=== PATIENT | female | born 1995 | race Caucasian/White ===

== ENCOUNTER 2023-12-29 12:03 | Outpatient (CLI) | payer OTHER, SELFPAY ==
--- NOTE | 2023-12-29 12:30 | US_ITS ---
Patient: JOAN OBANDO Facility:?[facility] RIS Patient ID:?[id number] Site Patient ID:?[id number] Site :?[id number] Study:?US-OB Pelvis DATING AND VIABILITY-12/29/2023 12:45:16 PM Ordering Physician:HEATH BURNHAM Final Report: INDICATION: First trimester scan, establish dates. COMPARISON: None. TECHNIQUE: Real-time barker-scale imaging of the pelvis was performed. FINDINGS: Sonographic imaging demonstrates a single living intrauterine gestation. The embryo demonstrates a regular cardiac rate measuring 171 beats per minute. The embryo`s crown-rump length measurement of 1.9 cm corresponds to a gestational age of 8 weeks 3 days with a sonographic due date of 08/06/2024. There is a normal-appearing yolk sac. There are no gross abnormalities noted within the embryo at this early state of development. The gestational sac has a normal appearance. There is no evidence of a perigestational hemorrhage. The amount of fluid within the sac appears appropriate for gestational age. The cervix is closed. The myometrium appears normal. The ovaries are of normal size. Corpus luteal cyst right ovary. There are no suspicious fluid collections noted in the cul-de-sac. IMPRESSION: Normal first trimester OB ultrasound exam. Gestational age calculated at 8 weeks 3 days with a sonographic due date of 08/06/2024. Dictated by Lm Wang MD @ 12/29/2023 1:04:30 PM Signed by:?Lm Wang MD @12/29/2023 1:04:30 PM (Electronic Signature)
== END 2023-12-29 12:04 | disposition home or self-care (01) ==
PROVIDERS: PCP Physician Assistant; Visit Provider Advanced Practice Midwife
DX: Z34.91 Encounter for supervision of normal pregnancy, unspecified, first trimester (principal); Z3A.08 8 weeks gestation of pregnancy
CPT/HCPCS: 76817; 84443; 84450; 84460; 86592; 86703; 86704; 86706; 86762; 86787; 86803; 86850; 86900; 86901; 87086; 87340

== ENCOUNTER 2024-01-02 15:34 | Outpatient (CLI) | payer OTHER, SELFPAY | END 2024-01-02 15:35 | disposition home or self-care (01) | LOC: NFLDREF 01-20 08:41 | PROVIDERS: Visit Provider Advanced Practice Midwife | DX: R03.0 Elevated blood-pressure reading, without diagnosis of hypertension (principal) | CPT/HCPCS: 82570; 84156 ==

== ENCOUNTER 2024-01-18 12:12 | Outpatient (CLI) | payer OTHER, SELFPAY | END 2024-01-18 12:13 | disposition home or self-care (01) | LOC: NFLDREF 02-03 18:15 | PROVIDERS: Visit Provider Advanced Practice Midwife | DX: R03.0 Elevated blood-pressure reading, without diagnosis of hypertension (principal) | CPT/HCPCS: 82570; 84156 ==

== ENCOUNTER 2024-02-28 10:17 | Outpatient (CLI) | payer OTHER, SELFPAY | END 2024-02-28 10:18 | disposition home or self-care (01) | LOC: NFLDREF 03-02 01:36 | PROVIDERS: Visit Provider Obstetrics & Gynecology | DX: Z34.92 Encounter for supervision of normal pregnancy, unspecified, second trimester (principal); Z3A.16 16 weeks gestation of pregnancy | CPT/HCPCS: 87491; 87591 ==

== ENCOUNTER 2024-03-27 12:44 | Outpatient (CLI) | payer OTHER, SELFPAY ==
--- NOTE | 2024-03-27 13:00 | CRLHL7_ITS ---
For Patients: As a result of the 21st Century Cures Act, medical imaging exams and procedure reports are released immediately into your electronic medical record. You may view this report before your referring provider. If you have questions, please contact your health care provider. OB ULTRASOUND CLINICAL HISTORY: Anatomy screen. COMPARISON: 12/29/2023. DUDLEY by LMP: 08/09/2024. GA: 20 w, 5 d. FINDINGS: position: Breech. Cervix: Visualized. Technique: Transabdominal. Length of closed cervix: 5.1 cm. Placenta/cord: Posterior. Placenta tip to internal OS: 7.8cm. Umbilical Cord: 3-vessel cord. Placenta insertion: Marginal (within 2 cm of placenta edge). Amniotic Fluid: 4.8 cm SDP (greater than/equal to: 2- less than 8 cm). SURVEY: Observed Structures Cerebellum: Yes. 2.3 cm; 23 w 0 d. Cisterna Magna: Yes. 4.7 mm. Nuchal Fold: Yes. 4.1 mm. Lateral Ventricle: Yes. 5.5 mm. CSP: Yes. Midline Falx: Yes. Choroid Plexus: Yes. Spine: Yes. Stomach: Yes. Abd Cord Insertion: Yes. Urinary Bladder: Yes. Kidneys: Yes. Diaphragm: Yes. Nose/lips: Yes. Orbital view: Yes. Profile: Yes. Upper Extremities: Yes. Lower Extremities: Yes. Hands: Yes. Feet: Yes. Four-Chamber Heart: Yes. LVOT: Yes. RVOT: Yes. 3VV: Yes. 3VTV: Yes. BPD: 4.9 cm. 20 w 6 d, 55%. HC: 18.3 cm. 20 w 4 d, 37%. AC: 16.7 cm. 21 w 5 d, 74%. FL: 3.6 cm. 21 w 3 d, 67%. FL/AC: 21.67%. HC/AC Ratio: 1.10. Heart rate: 159 beats per minute. age by this US: 21 w 4 d. DUDLEY by this US: 08/03/2024. EFW: 425 g. Weight: 15 oz. Percentile by DUDLEY: 83%. IMPRESSION: 1. Measurements are consistent with dates. Good interval growth since the prior exam. 2. Normal anatomic survey. 3. Marginal cord insertion located 1.9 cm from the placental edge. Joseluis Henry M.D. Body/Diagnostic Radiologist [email or web address] JOSE ANTONIO/adele angulo/Dictated by: Joseluis Henry MD @ 03/28/2024 9:49:00 AM (Electronically Signed)
== END 2024-03-27 12:45 | disposition home or self-care (01) ==
LOC: US 12:45
PROVIDERS: Visit Provider Obstetrics & Gynecology
DX: Z34.92 Encounter for supervision of normal pregnancy, unspecified, second trimester (principal); Z3A.20 20 weeks gestation of pregnancy
CPT/HCPCS: 76805

== ENCOUNTER 2024-05-25 08:01 | Outpatient (CLI) | payer OTHER, SELFPAY | END 2024-05-25 08:02 | disposition home or self-care (01) | LOC: NFLDREF 13:30 | PROVIDERS: PCP Obstetrics & Gynecology; Visit Provider Obstetrics & Gynecology | DX: O99.283 Endocrine, nutritional and metabolic diseases complicating pregnancy, third trimester (principal); E03.9 Hypothyroidism, unspecified; Z3A.29 29 weeks gestation of pregnancy | CPT/HCPCS: 76816; 84443; 86592 ==

== ENCOUNTER 2024-06-18 13:54 | Outpatient (CLI) | payer OTHER, SELFPAY ==
--- NOTE | 2024-06-18 14:00 | CRLHL7_ITS ---
For Patients: As a result of the Century Cures Act, medical imaging exams and procedure reports are released immediately into your electronic medical record. You may view this report before your referring provider. If you have questions, please contact your health care provider. INDICATION: Marginal cord insertion. Gestational age 32 weeks 4 days TECHNIQUE: Ultrasound OB pelvis transabdominal. Real-time barker-scale imaging of the fetus was performed without stress testing. COMPARISON: 05/25/2024 FINDINGS: Sonographic imaging demonstrates a single living intrauterine gestation. Fetus demonstrates a regular cardiac rate of 131 beats per minute. Fetus has a cephalic orientation. Placenta location is posterior. Placenta cord insertion is 3.7 cm from the placental margin. Amniotic fluid volume appears normal with single deepest vertical pocket of 5.9 cm. Biometric measurements: Biparietal diameter: 8.4 cm (33 weeks 5 days, 76th percentile). Head circumference: 30.0 cm (33 weeks 2 days, 30th percentile). Abdominal circumference: 29.6 cm (33 weeks 4 days, 77th percentile). Femur length: 6.3 cm (32 weeks 4 days, 39th percentile). Estimated weight: 2157 grams, 63rd percentile. Estimated ultrasound age by today`s measurements is 33 weeks 2 days. IMPRESSION: 1. Single live intrauterine in cephalic orientation. 2. Sonographic gestational age of 33 weeks 2 days. 3. Estimated weight of 2157 grams, which is the 63rd percentile. Dictated by Charleen Coto MD @ 06/19/2024 9:36:16 AM (Electronically Signed)
== END 2024-06-18 13:55 | disposition home or self-care (01) ==
LOC: US 13:54
PROVIDERS: Visit Provider Obstetrics & Gynecology
DX: O43.193 Other malformation of placenta, third trimester (principal); Z3A.33 33 weeks gestation of pregnancy
CPT/HCPCS: 76816

== ENCOUNTER 2024-07-16 14:58 | Outpatient (CLI) | payer OTHER, SELFPAY ==
[2024-07-17 22:54] LABS: Strep B DNA Probe Negative (Negative)
[2024-07-17 23:33] LABS: Strep B Susceptibility Needed? No
== END 2024-07-16 14:59 | disposition home or self-care (01) ==
PROVIDERS: Visit Provider Obstetrics & Gynecology
DX: R03.0 Elevated blood-pressure reading, without diagnosis of hypertension (principal)
CPT/HCPCS: 82565; 82570; 84156; 84450; 84460; 87081; 87653

== ENCOUNTER 2024-07-17 14:08 | Outpatient (CLI) | payer OTHER, SELFPAY | END 2024-07-17 14:09 | disposition home or self-care (01) | PROVIDERS: Visit Provider Obstetrics & Gynecology | DX: O13.3 Gestational [pregnancy-induced] hypertension without significant proteinuria, third trimester (principal); Z3A.36 36 weeks gestation of pregnancy | CPT/HCPCS: 82565; 82570; 84156; 84450; 84460; 84520; 87086 ==

== ENCOUNTER 2024-07-18 16:29 | Inpatient (IN) | payer OTHER, SELFPAY ==
[2024-07-18] VITALS (9 sets, daily range): BP systolic 118–136; BP diastolic 67–83; PULSE 68–85; RESP 14; TEMP 36.9; BMI 39.2
[2024-07-18 17:10] LABS: Hematocrit 39.7 % (33.0-51.0); Hemoglobin* 13.6 gm/dL (12.0-16.0); Mean Corpuscular HGB Conc 34 gm/dL (32-36); Mean Corpuscular Hemoglobin 31 pg (26-34); Mean Corpuscular Volume 89 fL (80-100); Platelet Count* 209 K/uL (140-440); Red Blood Count 4.44 m/uL (4.00-5.20); White Blood Count* 12.22 K/uL (4.50-11.00)
[2024-07-18 17:20] LABS: Slide Review Reflex No
[2024-07-18] MEDS: miSOPROStoL 25 MCG/0.25 TABLET VAGINAL ×2 (17:30→21:34)
[2024-07-18 17:33] LABS: INR 0.89 (0.91-1.10); Prothrombin Time 12.6 Seconds
[2024-07-18 17:34] LABS: Partial Thromboplastin Time* 25 Seconds (23-33)
[2024-07-18 17:35] LABS: Fibrinogen* 468 mg/dL (200-450)
[2024-07-18 17:38] LABS: Total Protein Urine 6 mg/dL
[2024-07-18 17:39] LABS: Alanine Aminotransferase* 25 U/L (4-35); Aspartate Amino Transferase* 31 U/L (12-35); Creatinine Urine 62.3 mg/dL; Creatinine* 0.7 mg/dL (0.5-1.5); Estimated Glomerular Filt Rate 119 ml/min
[2024-07-18 17:40] LABS: Blood Urea Nitrogen* 10 mg/dL (5-24)
--- NOTE | 2024-07-18 18:02 | W.PM.LDBA ---
Subjective History of Present Illness Time Seen by Provider: 17:05 Date Seen: 07/18/24 Narrative: Patient is being admitted to Labor and Delivery for scheduled induction of labor for gestational hypertension. She is a 29 year old at 36w6d gestation. is otherwise complicated by hypothyroidism. Patient was seen several times this week, where she was diagnosed with gestational hypertension and recommended to have scheduled induction at 37 weeks. Cervix was checked yesterday by Dr. Raad Gooden, closed to fingertip. Lesa is feeling well today, denies any acute concerns. She has at intermittent headache, rated as 2/10 in severity. This is so mild she is not even utilize Tylenol. Denies vision changes or right upper quadrant pain. No regular/painful uterine contractions, vaginal bleeding or leaking of fluid. Endorses active movement. Specific Issues/Plans Maximiliano H&P done by Dr. Denny on 07/16/2024. # GHTN- diagnosed at 36 5/7 weeks Elevates BPs more than 4 hours apart. IOL scheduled to start 07/18/24 #Hypothyroidism on levothyroxine 50 mcg at NOB TSH 1st trimester- 0.4 2nd: N/A 05/25/24: 0.549 # marginal cord insertion (Resolved) Diagnosis on anatomy ultrasound. 1.9 cm from placental edge. Q 4 weeks growth scans starting at 28 weeks BPP weekly starting at 36 weeks US on 06/18/24: Cord insertion into the placenta is 3.7 cm from edge. EFW 63%tile, AC 77%tile. SDP 5.9 cm. Can cancel BPP # Rubella non-immune recommend vaccine PP Covid positive- 03/20/24, mild symptoms Ultrasounds: 03/27/24: anatomy. ?EFW 83%, AC 74%. SDP 4.8 cm. Posterior placenta without previa. Three-vessel cord. Marginal cord insertion.? 05/25/24: Vertex, single deepest pocket of amniotic fluid: 4.8 cm, EFW: 71 percentile, abdominal circumference: 78th percentile. Adequate growth. TDAP: 05/25/24 RSV: 07/02/24 Flu: got at work. Covid: Declines OB - Problem Based A/P Additional Plan (1) Gestational hypertension: Status: Acute (2) Hypothyroidism affecting : Status: Acute Plan Lesa is a 29-year-old at 36 weeks 6 days gestational age admitted for induction of labor in the setting of gestational hypertension. is otherwise complicated by hypothyroidism. She is feeling well today with no acute concerns. No relenting headache, vision changes right upper quadrant pain. No signs/symptoms of labor at this time. Plan to admit with Cytotec for cervical ripening overnight. Obtain type and screen and HELLP labs on admission Diligent blood pressure monitoring overnight, no signs or symptoms of preeclampsia severe features at this time Blood type O positive GBS negative EFW 2157 grams, which is the 63rd percentile by ultrasound on 07/17 OB Exam Physical Exam Vital signs: Pulse BP 82 125/75 07/18/24 17:22 07/18/24 17:22 Narrative: Physical exam: General: No acute distress Psych: Alert and oriented x3, full affect Abdomen: Gravid. Otherwise soft and nontender. EFW by growth ultrasound yesterday was 2157 grams, which is the 63rd percentile. Cephalic presentation. heart rate: Reactive NST. Baseline of 125 beats per minute, moderate variability, accelerations present, decelerations absent. Cervix: Finger tip by Dr. Beckham yesterday. Plan Cytotec overnight.
[2024-07-19] VITALS (36 sets, daily range): BP systolic 106–150; BP diastolic 55–96; PULSE 67–102; RESP 15–16; TEMP 36.7–37.1; O2SAT 96–100
[2024-07-19] MEDS: MORPHINE 10 MG/ML inj IM (02:48)
[2024-07-19] MEDS: hydrOXYzine pamoate 25 MG CAPSULE 100 MG PO (02:48)
[2024-07-19] MEDS: miSOPROStoL 25 MCG/0.25 TABLET VAGINAL ×2 (02:49→07:43)
--- NOTE | 2024-07-19 07:42 | PM.OBPNL ---
Subjective Time Seen by Provider: 07:42 Date Seen: 07/19/24 Narrative: Subjective: Rating her contractions 4-5/10 so somewhat uncomfortable. Has had 3 doses of Cytotec overnight. Reviewed that we can do up to 5 doses of Cytotec. Thing on her cervical exam after Cytotec plan would be to either place a Cook catheter or start Pitocin per the induction protocol. Vital signs: Per electronic medical record. EFM: Baseline 130s, positive accelerations, negative decelerations, [moderate] variability, reactive. Category 1. [place]: Contractions every 2-4 minutes. SVE: 1.5 cm/50 %/-3/mid/soft. Brantley score 5 Assessment: 29-year-old 1 para 0 at 37 weeks 0 days gestation undergoing induction of labor for gestational hypertension Plan: 1. Continue Cytotec for cervical ripening, getting her 4th dose of Cytotec now. Will reassess cervical exam in a few hours and make a plan for either Cook catheter or Pitocin per induction protocol. 2. Group B strep negative 3. Blood type O positive Objective Vital Signs: Last Vital Signs Temp 98.5 F 07/19/24 04:49 Pulse 78 07/19/24 07:39 Resp 16 07/19/24 02:58 BP 133/96 H 07/19/24 07:39 Pulse Ox 99 07/19/24 07:03
[2024-07-19] MEDS: LEVOTHYROXINE 50 MCG TABLET PO (08:09)
--- NOTE | 2024-07-19 12:54 | PM.OBPNL ---
Subjective Time Seen by Provider: 12:54 Date Seen: 07/19/24 Narrative: Subjective: Patient is comfortable w/ epidural/uncomfortable with contractions. Rating contractions 5/10 after 4 doses of Cytotec. Verbal consent obtained to place a Cook catheter. Vital signs: Per electronic medical record. EFM: Baseline 130s, positive accelerations, negative decelerations, moderate variability, reactive. Category 1. [place]: Contractions every 2-4 minutes. SVE: 1.5 cm/50 %/-2. Cook catheter placed Assessment: 29-year-old 1 para 0 at 37 weeks 0 days gestation undergoing cervical ripening followed by induction of labor for gestational hypertension. Plan: 1. Start low-dose Pitocin at 7:00 p.m. 2. Cook catheter placed with 60 mL of saline in both balloons at 12:50 p.m. 3. GBS negative Objective Vital Signs: Last Vital Signs Temp 98.4 F 07/19/24 11:52 Pulse 88 07/19/24 12:52 Resp 16 07/19/24 11:52 BP 132/90 H 07/19/24 12:52 Pulse Ox 97 07/19/24 10:47
[2024-07-19] MEDS: OXYTOCIN 30 unit/500 ML in NS 30 UNIT/500 ML BAG IVPB (19:11)
[2024-07-19] MEDS: LACTATED RINGERS 1000 ML 1,000 ML 25 ML IV (19:11)
[2024-07-20] VITALS (74 sets, daily range): BP systolic 96–140; BP diastolic 42–94; PULSE 69–104; RESP 16–18; TEMP 36.6–37; O2SAT 96–100
[2024-07-20] MEDS: ROPIVACAINE 0.2% 100 ml 100 ML 12 MG EPIDURAL (07:44)
[2024-07-20] MEDS: BUPIVACAINE 0.25% PF 10 ML 10 ML ML EPIDURAL (07:44)
--- NOTE | 2024-07-20 07:53 | P.ANBPRC_ITS ---
PFSH PFSH Surgical History Hx of adenoidectomy ?Z90.89 - Acquired absence of other organs (ICD-10) Hx of appendectomy ?Z90.49 - Acquired absence of other specified parts of digestive tract (ICD- 10) Hx of tonsillectomy ?Z90.89 - Acquired absence of other organs (ICD-10) Social History What is your current living situation?: I presently have a place to live Problems where you live: no known problems In the past 12 months, utilities in danger of being shut off: no In the past 12 mos, have been you worried that your food would run out before you had money to buy more?: never true In the past 12 mos, the food you bought just didn't last and you didn't have money to buy more?: never true Smoking Status: Never smoker How often does anyone, including family, friends and others, physically hurt you : never How often does anyone, including family, friends and others, insult or talk down to you: never How often does anyone, including family, friends and others, threaten you with harm: never How often does anyone, including family, friends and others, scream or curse at you: never Meds Home Medications and Allergies Home Medications ?Medication ?Instructions ?Recorded ?Confirmed ?Type calcium-vit D3-ferrous fumarate 1 tab PO BID 12/29/23 07/18/24 History 600 mg-125 unit-18 mg tablet levothyroxine 50 mcg capsule 50 mcg PO QDAY 12/29/23 07/18/24 History vitamins no.119-iron 1 tab PO DAILY 12/29/23 07/18/24 History fumarate 29 mg-folic acid 1 mg tablet calcium carbonate (Tums) 300 mg PO BID PRN 03/27/24 07/18/24 History omeprazole 20 mg capsule,delayed 20 mg PO QDAY PRN 03/27/24 07/18/24 History release amoxicillin 875 mg-potassium 1 tab PO BID 07/16/24 07/18/24 History clavulanate 125 mg tablet Allergies Allergy/AdvReac Type Severity Reaction Status Date / Time No Known Drug Allergies Allergy Verified 07/18/24 16:49 Results Vital Signs Vital Signs: Last Vital Signs Temp 97.8 F 07/20/24 06:00 Pulse 85 07/20/24 07:51 Resp 18 07/20/24 01:32 BP 124/79 07/20/24 07:51 Pulse Ox 96 07/20/24 07:49 Weight: 113.534 kg Height: 170.18 cm Anesthesia Procedures Epidural Insertion Patient Location: OB Start Time: 07:15 Stop Time: 07:55 Start Date: 07/20/24 Stop Date: 07/20/24 Reason for Block: procedure for pain Patient Position: sitting Performed By: Colby Roland Preanesthetic Checklist: IV checked, risks and benefits discussed, monitors and equipment checked, pre-op evaluation, timeout performed and anesthesia consent Prep: chlorhexidine gluconate Monitoring: blood pressure monitoring, continuous pulse oximetry and heart rate Approach: midline Vertebral Space: lumbar (1-5) Epidural Technique: DENA saline Needle Type: Tuohy needle Injection Technique: continuous catheter Needle gauge: 17 Needle Length (cm): 10 cm Needle Insertion Depth (cm): 7 Catheter Gauge: 19 Catheter Type: multi-orifice Catheter at skin depth (cm): 13 Test Dose Result: negative and lidocaine 1.5% with epinephrine 1 to 200,000
[2024-07-20] MEDS: LACTATED RINGERS 1000 ML 1,000 ML 125 ML IV ×2 (08:05→17:30)
--- NOTE | 2024-07-20 08:26 | PM.OBPNL ---
Subjective Time Seen by Provider: 08:43 Date Seen: 07/20/24 Narrative: Lesa is a 29-year-old woman at 37 weeks, 1 day gestation admitted for induction of labor for gestational hypertension. Thus far, she has had Cytotec for cervical ripening, followed by Cook catheter, which was reviewed moved early this morning. She just had an epidural for pain control, and Leon catheter was just placed. Objective Exam: General: Pleasant, no acute distress Abdomen: Soft, nontender, gravid, cephalic lie, EFW 8 lb Lower extremities: No edema or erythema Cervical exam: 3 cm, 80%,-2 station. AROM for blood-tinged fluid. IUPC placed in aseptic fashion. Vital Signs: Last Vital Signs Temp 98.3 F 07/20/24 08:00 Pulse 88 07/20/24 08:08 Resp 18 07/20/24 08:00 BP 112/59 L 07/20/24 08:08 Pulse Ox 96 07/20/24 07:49 tracing: Baseline 150. Beginning at 7:40 a.m., there were recurrent variable decelerations, 2 of which were deep, with the lowest with a carlton in the 70s lasting about 1 minute. Since around 8:20 a.m., she has had recurrent decelerations that appeared late, but contractions are not tracing very well or at all. Moderate variability. Comments: Last HELLP labs were normal the afternoon of 07/18/2024 Assessment Assessment: early labor Amniotic Membrane Status: AROM Tracing Comments: Category 2. Uncertain regarding presence of late decelerations. Labor Progress: Prolonged induction, currently in latent phase labor. Maternal Status: Normotensive in recent history. No HELLP labs since 07/18/2024. Plan Plan: IUPC placed. I will observe tracing now that I am able to see timing of contractions to verify if she is having late decelerations or not. Continuous monitoring. If late decelerations are noted, I will discontinue Pitocin. Repeat HELLP labs
[2024-07-20 09:39] LABS: Basophils Percent Auto 0.3 % (0.0-3.0); Eosinophils Percent Auto 0.5 % (0.0-7.0); Hematocrit 39.3 % (33.0-51.0); Hemoglobin* 13.6 gm/dL (12.0-16.0); Immature Granulocytes Pct Auto 0.7 %; Lymphocytes Percent Auto 12.6 % (20-44); Mean Corpuscular HGB Conc 35 gm/dL (32-36); Mean Corpuscular Hemoglobin 31 pg (26-34); Mean Corpuscular Volume 90 fL (80-100); Monocytes Percent Auto 6.3 % (0.0-11.0); Neutrophils Percent Auto 79.6 % (42.0-72.0); Platelet Count* 196 K/uL (140-440); RDW Coefficient of Variation % 12.7 % (11.5-15.5); Red Blood Count 4.35 m/uL (4.00-5.20); White Blood Count* 15.26 K/uL (4.50-11.00)
[2024-07-20 09:41] LABS: Slide Review Reflex No
[2024-07-20 09:55] LABS: Alanine Aminotransferase* 21 U/L (4-35); Aspartate Amino Transferase* 32 U/L (12-35); Blood Urea Nitrogen* 12 mg/dL (5-24); Creatinine* 0.8 mg/dL (0.5-1.5); Est. Creatinine Clearance* 99.99; Estimated Glomerular Filt Rate 102 ml/min
[2024-07-20] MEDS: LEVOTHYROXINE 50 MCG TABLET PO (10:27)
[2024-07-20] MEDS: AZITHROMYCIN 500 MG in 0.9 % SODIUM CHLORIDE 250 ml 250 ML 255 MG IVPB (11:59)
[2024-07-20] MEDS: CEFAZOLIN 2 GM INJ IVP (14:05)
--- NOTE | 2024-07-20 14:16 | W.ANESCHARGE ---
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
--- NOTE | 2024-07-20 14:17 | W.PM.NB ---
Nerve Block Nerve Block Time Seen by Provider: 15:10 Date Seen: 07/20/24 Type of block requested by surgeon for post-operative analgesia: TAP Side: bilateral Time out performed: Yes Verification of patient name: Yes Verification of date of : Yes Site marking: site marked Name of person performing procedure: Randy Hogan Continuous monitoring Was continuous monitoring of O2 sat, B/P, cardiac cath technician, recorded every 15 minutes?: Yes Procedure Checklist: sterile prep, needles and gloves Ultrasound guided. Images saved: Yes Medications given in 5ml increments after negative aspiration: Marcaine %: 0.25 mL: 30 Needle gauge: 20 and Exparel mL: 10 Needle gauge: 20 Patient tolerated procedure well: Yes Additional comments: Injected in 5ml increments after negative aspiration Block Charges Block Charge (with Pro Fee): TAP Bilateral Use of Ultrasound Machine for Block: Yes- US Guidance/pain block
[2024-07-20] MEDS: KETOROLAC 30 MG/ML inj IVP ×2 (14:51→21:22)
--- NOTE | 2024-07-20 14:57 | PM.OBPRCCS ---
Procedure Date of procedure: 07/20/24 Pre-op diagnosis: 37 weeks, 1 day gestation Hypertension intolerance of labor Post-op diagnosis: same Procedure Done: Global Will [facility] bill your pro fee for this procedure?: Yes Blood Loss Measurement Type: QBL (364 mL) Bakri Used: No IV fluids (mL): 400 Urine Output (mL): 200 Surgeon: Daisy Whiting MD Anesthesia Type: Epidural Findings: 1. Male , cephalic OA presentation, Apgars of 8 and 9, weight 6 lb, 1 oz 2. Normal appearance of uterus, bilateral tubes and ovaries Procedure Name: Primary low-transverse Procedure Description: Patient was taken to the operating room with IV running. She received cefazolin and azithromycin in preoperative prophylaxis. Epidural anesthesia had previously been administered. Leon catheter was previously inserted. She was prepped and draped in the usual sterile fashion. Anesthesia was tested and found to be adequate. A low-transverse skin incision was made with a scalpel and carried through to the underlying layer of fascia with the scalpel. The subcutaneous fat was dissected off the underlying fascia bluntly. The fascia was nicked in the midline with a scalpel, and this incision was extended laterally with scissors. The rectus muscles were in the midline. Peritoneum was identified and entered bluntly. Bovie was used to widen this opening laterally. Yash O retractor was inserted and tightened down, providing excellent visualization of the lower uterine segment. The bladder reflection was found to be well below the planned site for hysterotomy. Low-transverse uterine incision was made with a scalpel. Incision was widened bluntly. The infant's head was grasped through the hysterotomy and delivered with the help of fundal pressure. The remainder of the body delivered without incident. Cord was clamped and cut after 30 seconds. was handed off to attending pediatric provider. The placenta was delivered with gentle traction on the cord. The uterus was cleaned of all clots and debris with the dry lap pad. The hysterotomy was reapproximated with 0 Vicryl in a running, locked fashion. Second layer of the same suture was used in imbricating fashion to obtain hemostasis. The adnexa were examined and noted to be normal in appearance. The cul-de-sac and gutters were cleansed with dampened laparotomy sponge, removing any further clots and debris. The Yash O retractor was removed. The hysterotomy was reexamined and found to be hemostatic. The peritoneum was reapproximated with 2 0 Vicryl in a running fashion. The rectus muscles were examined and found to be hemostatic. The fascia was reapproximated with 0 Vicryl in a running fashion. Subcutaneous fat was irrigated and Bovie used on oozing vessels. The subcutaneous fat was reapproximated with 2 0 plain gut suture in an interrupted fashion. The skin was closed with a subcuticular stitch of 4-0 Monocryl. Surgical glue was applied above this. Patient tolerated procedure well was taken to recovery area in stable condition. Pathology: specimen obtained, sent to pathology Surgery Debrief Performed: Yes Surgery Debrief Comment: Postoperative debrief was verbalized with OR staff, including a verification of pathology specimens to be sent as described above. Condition: stable
--- NOTE | 2024-07-20 15:01 | W.ANESCHARGE ---
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
[2024-07-20] MEDS: ENOXAPARIN 40 MG/0.4 ML INJ SUBCUT (20:31)
[2024-07-20] MEDS: SODIUM CHLORIDE 0.9 % (FLUSH) 10 ML SYRINGE IVF (21:23)
[2024-07-21] VITALS (18 sets, daily range): BP systolic 104–148; BP diastolic 68–93; PULSE 55–99; RESP 16–18; TEMP 36.6–36.7; O2SAT 97–100
[2024-07-21] MEDS: KETOROLAC 30 MG/ML inj IVP ×4 (02:51→20:35)
[2024-07-21] MEDS: SODIUM CHLORIDE 0.9 % (FLUSH) 10 ML SYRINGE IVF (02:55)
[2024-07-21 06:06] LABS: Rapid Plasma Reagin (RPR) Non Reactive (Non Reactive)
[2024-07-21 07:12] LABS: Basophils Percent Auto 0.2 % (0.0-3.0); Eosinophils Percent Auto 0.1 % (0.0-7.0); Hematocrit 34.9 % (33.0-51.0); Hemoglobin* 11.9 gm/dL (12.0-16.0); Immature Granulocytes Pct Auto 0.5 %; Mean Corpuscular HGB Conc 34 gm/dL (32-36); Mean Corpuscular Hemoglobin 31 pg (26-34); Mean Corpuscular Volume 91 fL (80-100); Monocytes Percent Auto 6.4 % (0.0-11.0); Neutrophils Percent Auto 77.8 % (42.0-72.0); Platelet Count* 180 K/uL (140-440); Red Blood Count 3.83 m/uL (4.00-5.20); White Blood Count* 19.87 K/uL (4.50-11.00)
[2024-07-21 07:20] LABS: Slide Review Reflex No
[2024-07-21 07:31] LABS: Alanine Aminotransferase* 17 U/L (4-35); Aspartate Amino Transferase* 33 U/L (12-35); Blood Urea Nitrogen* 11 mg/dL (5-24); Creatinine* 0.7 mg/dL (0.5-1.5); Est. Creatinine Clearance* 114.28; Estimated Glomerular Filt Rate 119 ml/min
[2024-07-21] MEDS: DOCUSATE SODIUM 100 MG CAPSULE PO (08:00)
[2024-07-21] MEDS: ACETAMINOPHEN 500 MG TABLET 1000 MG PO ×2 (08:00→13:57)
[2024-07-21] MEDS: LEVOTHYROXINE 50 MCG TABLET PO (08:01)
--- NOTE | 2024-07-21 09:42 | P.OBPN_ITS ---
OB - PN:Subj Subjective Time Seen by Provider: 09:20 Date Seen: 07/21/24 Patient comments OB post-: pain well controlled, tolerating diet and flatus present status: Narrative: Lesa is a 29 y.o. who was admitted to L & D for IOL due to GHTN diagnosis. ?She had an uncomplicated .?The patient feels well. ?The pain is well controlled with current medications. ?She has no new complaints. ?She is breast feeding and reports things are going well.? the patient has done well.? Vitals have been stable.? She has remained afebrile.? Has a good appetite, is tolerating a general diet. ?Leon catheter in place with normal output.? She is passing gas and has not had a bowel movement.? She is ambulating and denies any dizziness.? Has Small amount of rubra lochia. ?No FAMILY ADVOCATE irritability symptoms, and blood pressures have remained normal. OB - PN: Obj Exam Physical Exam: Vital signs: Temp Pulse Resp BP Pulse Ox O2 Del Method 97.8 F 55 L 18 122/82 99 Room Air 07/21/24 07:00 07/21/24 07:00 07/21/24 07:00 07/21/24 07:00 07/21/24 07:00 07/21/24 07:00 Narrative: GENERAL APPEARANCE:? normal affect, alert, no distress MOOD:? appropriate CHEST:? clear to auscultation HEART:? regular rate and rhythm ABDOMEN:? soft, non-tender the uterine fundus is At Umbilicus, Midline and is appropriate for the stage of recovery. EXTREMITIES:? normal and no edema Incision: Dressing in place clean and dry. OB - PN: Obj Data Labs Labs: Laboratory Results - last 24 hr 07/18/24 07/20/24 07/21/24 16:59 09:15 06:39 WBC 19.87 H RBC 3.83 L Hgb 11.9 L Hct 34.9 MCV 91 MCH 31 MCHC 34 RDW Coeff of Chelsey 13.0 Plt Count 180 Neut % (Auto) 77.8 H Lymph % (Auto) 15.0 L [place] % (Auto) 6.4 Eos % (Auto) 0.1 Baso % (Auto) 0.2 Neut # (Auto) 15.50 H Lymph # (Auto) 3.00 H [place] # (Auto) 1.30 H Eos # (Auto) 0.00 Baso # (Auto) 0.00 Abs Immat Gran (auto) 0.10 Imm/Tot Granulo (auto) 0.5 BUN 12 11 Creatinine 0.8 0.7 Estimated Creat Clear 99.99 114.28 Estimated GFR 102 119 AST 32 33 ALT 21 17 RPR Screen Non Reactive OB - PN: A/P Delivery Assessment and Plan (1) Gestational hypertension: Status: Acute Assessment and Plan: Continue to monitor V/S, will only repeat labs if there are episodes of severely elevated blood pressures or FAMILY ADVOCATE irritability symptoms. (2) Hypothyroidism affecting : Status: Acute Assessment and Plan: Continue levothyroxine Plan day: 1 Plan: routine care
[2024-07-21] MEDS: OXYCODONE 5 MG TABLET PO (17:20)
[2024-07-21] MEDS: ENOXAPARIN 40 MG/0.4 ML INJ SUBCUT (20:35)
[2024-07-22] MEDS: IBUPROFEN 600 MG TABLET PO ×2 (00:25→06:32)
[2024-07-22] MEDS: OXYCODONE 5 MG TABLET PO ×2 (03:15→10:14)
[2024-07-22] MEDS: ACETAMINOPHEN 500 MG TABLET 1000 MG PO ×2 (03:15→10:14)
[2024-07-22 04:09] VITALS: BP 119/74; PULSE 84; RESP 16; TEMP 36.9
[2024-07-22 08:13] VITALS: BP 119/77; RESP 16; TEMP 36.8; O2SAT 98
[2024-07-22] MEDS: DOCUSATE SODIUM 100 MG CAPSULE PO (08:46)
[2024-07-22] MEDS: LEVOTHYROXINE 50 MCG TABLET PO (08:46)
--- NOTE | 2024-07-22 10:21 | PM.OBDSVD1 ---
DS: Providers Provider Date Seen: 07/22/24 Date of admission: 07/18/24 16:29 Primary care physician: Not a Local Provider Admitting Clinician: April Diaz MD Attending Physician on discharge: Brittnee Beckham MD Date of Discharge: 07/22/24 DS: Diagnosis Discharge Diagnosis (1) Gestational hypertension: Status: Acute (2) Status post delivery: Status: Acute (3) Hypothyroid: Status: Acute Exam Narrative: Exam Narrative: VITAL SIGNS: As noted above. GENERAL APPEARANCE: Alert, cooperative female in no acute distress. MOOD & AFFECT: Normal. HEART: Regular rate and rhythm without murmurs. LUNGS: Lungs are clear to auscultation bilaterally. No crackles, wheezes, or rhonchi. ABDOMEN: Uterus well contracted at umbilicus. Incision covered by glue, surrounding hematoma. Otherwise no abnormal induration, erythema or abnormal discharge. : Normal lochia. EXTREMITIES: Bilateral pitting edema +1 up to ankles. Well perfused. Nontender. NEURO: Intact. Const: Vital Signs, click to edit/add: Vital Signs - 24 hr 07/21/24 10:38 07/21/24 12:25 07/21/24 17:10 Temperature 97.8 F 97.8 F Pulse Rate [Pulse Oximeter] 64 99 94 Respiratory Rate 16 18 16 Blood Pressure [Ri ght Arm] 118/76 122/82 104/72 Pulse Oximetry 98 99 98 Oxygen Delivery Me thod Room Air Room Air Room Air 07/21/24 20:40 07/21/24 23:41 07/21/24 23:58 Temperature 98.0 F 97.9 F Pulse Rate [Pulse Oximeter] 89 93 Respiratory Rate 16 16 Blood Pressure [Ri ght Arm] 126/78 143/93 H 148/83 H Pulse Oximetry Oxygen Delivery Me thod Room Air 07/22/24 04:09 07/22/24 08:13 Temperature 98.4 F 98.2 F Pulse Rate [Pulse Oximeter] 84 Respiratory Rate 16 16 Blood Pressure [Ri ght Arm] 119/74 119/77 Pulse Oximetry 98 Oxygen Delivery Me thod Room Air OB - DS: Summary Hospital Course Hospital Course: The patient is a 29 year old G 1 P 1001 at 37 weeks gestation that was admitted to the Center on 07/18/24 for induction of labor due to gestational hypertension. She had an uncomplicated delivery. She delivered a viable male infant. She is breast feeding. the patient has done well. has had only 1 mild range elevated blood pressure, otherwise all normal. No TRANSITIONS RN CARE COORDINATOR irritability symptoms. Peripartum Data delivery method: Primary C/S; Labored Procedures: Procedures Operation Date: 07/20/24 14:00 Actual Procedure Side Surgeon p Primary low transverse Section Not Applicable Daisy Whiting MD complications: none [place] Gender: Male Discharge Plan: Home Status at Discharge Functional status at discharge: independent ambulation Overall status at discharge: patient is progressing back to baseline Time Spent with Patient Time attestation: Total time spent providing and/or coordinating discharge services: Time spent: Less than 30 minutes Discharge Plan Discharge Disposition: Home, Self-Care Date of Admission: 07/18/24 16:29 Attending Provider on Discharge: Kerrie Beckham Consulting Providers: Ashwini Miller; Kerrie Beckham Primary Care Provider: Provider,Not a Local Condition: Stable Anticipated Discharge Date/Time: 07/22/24 10:26 Discharge Medications: New acetaminophen 500 mg Tablet 1,000 mg PO Q6H PRN (Reason: Pain) Qty: 30 0RF docusate sodium 100 mg Capsule 100 mg PO DAILY Qty: 30 0RF ibuprofen 600 mg Tablet 600 mg PO Q6H PRN (Reason: Pain) Qty: 30 0RF Continued levothyroxine 50 mcg capsule 50 mcg PO QDAY PNV 119-iron fum-folic acid 29 mg iron- 1 mg tablet 1 tab PO DAILY [id number] fumarate 600-125-18 mg-unit-mg tablet 1 tab PO BID Discontinued amoxicillin-pot clavulanate 875-125 mg tablet 1 tab PO BID No Action labetalol 100 mg tablet 100 mg PO BID Qty: 60 0RF Discharge Orders: Discharge Order (Routine); Ordered 07/22/24 Ordered By: Kerrie Beckham Patient Education: OB Over the Counter Medication Information, OB /Breast Feeding Additional Instructions: Measure blood pressures at home twice a day. Notify clinic if there are blood pressures persistently more than 140 systolics, 90s diastolics or if any symptoms such as headaches that do not go away with pain medication, visual changes such as dark spots in vision, pain in the upper abdomen-that moves towards the upper right side. Follow-up in clinic in 3-5 days after discharge for blood pressure check. Follow-up in clinic in 2 weeks for incision check and follow-up. Follow-up in 6 weeks in clinic for regular visit. Activity Level: No Weight Bearing Activity Detail: Nothing vaginally for 6 weeks Discharge Diet: Regular Follow Up Appointments: Provider,Not a Local [Primary Care Provider] - Forms: [employer] Info Instructions Discharge Comments: Message sent to clinic requesting BP follow up appointment in 3-5 days. Discharge instructions reviewed. All questions answered. Patient verbalized understanding.
[2024-07-22] MEDS: MEASLES,MUMPS,RUBELLA VACC/PF 1 DOSE INJ 1 EACH SUBCUT (12:58)
== END 2024-07-22 13:40 | disposition home or self-care (01) | DRG 788 ==
PROVIDERS: Obstetrics & Gynecology; Admitting Provider Obstetrics & Gynecology; Visit Provider Obstetrics & Gynecology
PROC: (CPT 59514; principal; 2024-07-20 13:45)
DX: O13.4 Gestational [pregnancy-induced] hypertension without significant proteinuria, complicating childbirth (principal); O99.284 Endocrine, nutritional and metabolic diseases complicating childbirth; E03.9 Hypothyroidism, unspecified; Z3A.36 36 weeks gestation of pregnancy; Z37.0 Single live birth; G89.18 Other acute postprocedural pain; O77.1 Fetal stress in labor or delivery due to drug administration; Z78.9 Other specified health status
CPT/HCPCS: 01967; 01968; 36415; 59200; 64488; 76942; 82565; 82570; 84156; 84450; 84460; 84520; 85025; 85027; 85384; 85610; 85730; 86592; 86850; 86900; 86901; 88307; 99140; A4314; A9270; C1726; C9290; J0456; J0665; J0690; J1100; J1650; J1885; J2270; J2371; J2405; J2795; J3010; J7050; J7120

== ENCOUNTER 2024-07-23 14:28 | Outpatient (CLI) | payer OTHER, SELFPAY ==
--- NOTE | 2024-07-23 16:49 | W.PM.LAC.MC ---
Consult Note - Mom Date of Visit Date of visit: 07/23/24 Reason for consultation: Assistance Needed Visit Code: Visit Patient's Information Phone number: [phone] Para: 1 Allergies No Known Drug Allergies Allergy (Verified 07/18/24 16:49) Mother's medical history: Other (gest HTN) Delivery Information Delivery type: Primary C/S; Labored Gestational Age: 37 Gestational Weight For Age: AGA Weight: 2.755 kg Discharge Weight: 2.491 kg Percentage weight loss: 5 Baby's Information Baby's Age at Visit: 3 days Baby's Provider or Clinic: [facility] Jaundice: Yes Past Experience Past Experience: No Current Frequency of Day Feedings: every 2.5-3 hours, needing to wake him for all feedings Frequency of Night Feedings: same Both Breasts: Yes (offering) Suck: ok per mom Latch: better on her left side than right Length of Time: 2-3 minutes Pumping Pumping: No Supplementing EBM Supplement: No Formula Supplement: No Baby Elimination Number of Wet Diapers a Day: 3 so far today Number of BM a Day: 2 Breast/Nipple Condition Breast Information: Breasts are symmetrical with rounded lower quadrants, intramammary distance is less than 1.5 inches. No erythema. Nipples are supple, everted prior to feeding. Breast Shape: Round and Firm Engorgement: No Maternal Nipple Condition - Left: Short Maternal Nipple Condition - Right: Short Sore Nipples: No Baby Assessment Skin: Yellow (face) Tongue/frenulum: Restricted mid-range Palate: Average Lips: Relaxed and Symmetrical Jaw Alignment: Symmetrical Mucosa: [place], moist Onsite Observation Pre-Feed weight: 2.491 kg (9.6% weight loss) Post-Feed weight: 2.504 kg Milk Transferred (mL): 13 Position: Cross cradle Attachment/latch-on achieved: With difficulty Suck pattern: Suck burst and normal rest Swallow: Audible, consistent Behavior following feed: Relaxed, sleepy Pre-Nursing Left Nipple: Within Normal Limits Pre-Nursing Right Nipple: Within Normal Limits Post-Nursing Left Nipple: Within Normal Limits Post-Nursing Right Nipple: Within Normal Limits Assessments/Interventions Assessments/Interventions: Worked with mom/taught asymmetrical latch technique for a wide, deep latch and mom reports increased comfort with this and? more sustained nursing by baby; swallows heard for the first time. Reviewed in both football and cross cradle hold. Baby sustained nursing for a solid 10 minutes on her left breast; also nursed 10 minutes on her right breast but that was more on and off (mom's nipple a little shorter on the right and milk coming in so harder for baby to binder stripper machine nipple). Discussed normals of ; milk coming in, regulation of supply, use of pump to relieve fullness if needed, but not to pump every feeding if not needed to prevent over supply. Worked on positioning to get baby's mouth open wider and a deeper latch for more milk intake. Feeding Plan: Breastfeed for 10-15 on each breast, listening for active swallowing Mom to hand express minimum of 5 ml and offer after each feeding via syringe/finger feeding Use a syringe/feeding tube, cup, or bottle for feedings based on preference Give 9.6% weight loss, if baby won't latch to the breast for a feeding at the 3 hour rosita, plan to pump and either finger feed or bottle feed 15-20 ml, more if he acts hungry. Continue this until clinic appt tomorrow. Rest, and repeat every 2-3 hours, watch for early feeding cues Follow-Up Suggested follow up: Appointment as needed Time Spent Time spent with patient (min): 90 (face to face with patient, her mom and ) Meds Home Medications and Allergies Home Medications ?Medication ?Instructions ?Recorded ?Confirmed ?Type calcium-vit D3-ferrous fumarate 1 tab PO BID 12/29/23 07/18/24 History 600 mg-125 unit-18 mg tablet levothyroxine 50 mcg capsule 50 mcg PO QDAY 12/29/23 07/18/24 History vitamins no.119-iron 1 tab PO DAILY 12/29/23 07/18/24 History fumarate 29 mg-folic acid 1 mg tablet calcium carbonate (Tums) 300 mg PO BID PRN 03/27/24 07/18/24 History omeprazole 20 mg capsule,delayed 20 mg PO QDAY PRN 03/27/24 07/18/24 History release Allergies Allergy/AdvReac Type Severity Reaction Status Date / Time No Known Drug Allergies Allergy Verified 07/18/24 16:49
== END 2024-07-23 14:29 | disposition home or self-care (01) ==
PROVIDERS: Visit Provider Obstetrics & Gynecology
DX: Z39.1 Encounter for care and examination of lactating mother (principal)
CPT/HCPCS: G0463

== ENCOUNTER 2024-07-24 11:41 | Outpatient (CLI) | payer OTHER, SELFPAY | END 2024-07-24 11:42 | disposition home or self-care (01) | PROVIDERS: Visit Provider Obstetrics & Gynecology | DX: O14.10 Severe pre-eclampsia, unspecified trimester (principal) | CPT/HCPCS: 82565; 84450; 84460; 84520 ==

== ENCOUNTER 2024-07-24 16:34 | Inpatient (IN) | payer OTHER, SELFPAY ==
[2024-07-24] VITALS (11 sets, daily range): BP systolic 108–160; BP diastolic 68–97; PULSE 87–107; RESP 16–18; TEMP 36.8–37.1; O2SAT 100
[2024-07-24] MEDS: ACETAMINOPHEN 500 MG TABLET 1000 MG PO ×2 (16:56→23:00)
[2024-07-24] MEDS: MAGNESIUM IV 4 GM/100 ML PIGGYBACK IVPB (16:59)
[2024-07-24] MEDS: OXYCODONE 5 MG TABLET PO (17:23)
[2024-07-24] MEDS: MAGNESIUM Infusion 40 GM/1,000 ML IV.SOLN IVPB (17:35)
[2024-07-24 18:28] LABS: Basophils Percent Auto 0.2 % (0.0-3.0); Eosinophils Percent Auto 2.5 % (0.0-7.0); Hemoglobin* 11.8 gm/dL (12.0-16.0); Immature Granulocytes Pct Auto 0.6 %; Lymphocytes Percent Auto 19.1 % (20-44); Mean Corpuscular HGB Conc 34 gm/dL (32-36); Mean Corpuscular Hemoglobin 31 pg (26-34); Mean Corpuscular Volume 92 fL (80-100); Monocytes Percent Auto 5.3 % (0.0-11.0); Neutrophils Percent Auto 72.3 % (42.0-72.0); Platelet Count* 263 K/uL (140-440); RDW Coefficient of Variation % 12.8 % (11.5-15.5); Red Blood Count 3.82 m/uL (4.00-5.20); White Blood Count* 11.59 K/uL (4.50-11.00)
[2024-07-24 18:40] LABS: Slide Review Reflex No
--- NOTE | 2024-07-24 18:51 | W.PM.LDBA ---
Subjective History of Present Illness Narrative: Patient is being admitted to Labor and Delivery for management of preeclampsia with severe features during her course. She is a 29 year old -0-0-1 woman on day #4 after for intolerance of labor in the setting of IOL for gestational HTN. She was discharged off any antihypertensives. She presented to clinic today and had BPs 130s-140s / 80s. HELLP labs were checked, notable for normal platelets, ALT more than twice the upper limit of normal, and creatinine 0.9. Diagnosis of preeclampsia with severe features was made on this basis. She was then asked to present to the Center. She has been feeling OK. Mild headache currently. No visual changes. No SOB. She has some continuing incisional pain. She is with some difficulty. She is tired. She is accompanied by her mother, and son. Her full history and physical was dictated by Dr. Denny on 07/16. Please see this for details. Specific Issues/Plans Maximiliano H&P done by Dr. Denny on 07/16/2024. # GHTN- diagnosed at 36 5/7 weeks Elevates BPs more than 4 hours apart. IOL scheduled to start 07/18/24 #Hypothyroidism on levothyroxine 50 mcg at NOB TSH 1st trimester- 0.4 2nd: N/A 05/25/24: 0.549 # marginal cord insertion (Resolved) Diagnosis on anatomy ultrasound. 1.9 cm from placental edge. Q 4 weeks growth scans starting at 28 weeks BPP weekly starting at 36 weeks US on 06/18/24: Cord insertion into the placenta is 3.7 cm from edge. EFW 63%tile, AC 77%tile. SDP 5.9 cm. Can cancel BPP # Rubella non-immune recommend vaccine PP Covid positive- 03/20/24, mild symptoms Ultrasounds: 03/27/24: anatomy. ?EFW 83%, AC 74%. SDP 4.8 cm. Posterior placenta without previa. Three-vessel cord. Marginal cord insertion.? 05/25/24: Vertex, single deepest pocket of amniotic fluid: 4.8 cm, EFW: 71 percentile, abdominal circumference: 78th percentile. Adequate growth. TDAP: 05/25/24 RSV: 07/02/24 Flu: got at work. Covid: Declines OB - Problem Based A/P Additional Plan (1) Status post delivery: Status: Acute (2) Hypothyroid: Status: Acute (3) Pre-eclampsia affecting puerperium: Problem details: severe features based on AST elevation Status: Acute Plan Readmit for magnesium sulfate infusion. Will begin at 4 g bolus with 2 g / hour, but will monitor mag levels given her creatinine of 0.9 HELLP labs Q 6 hours Pressures still high on mag infusion. Will begin labetalol 100 mg BID, adjust as needed. OB Result Labs Labs: Labs from noon: Hemoglobin 11.5 Platelets 264 BUN 0.9 AST 84 ALT 52 OB Exam Physical Exam Vital signs: Temp Pulse Resp BP Pulse Ox O2 Del Method 98.7 F 107 H 16 139/86 100 Room Air 07/24/24 17:05 07/24/24 17:05 07/24/24 17:05 07/24/24 18:40 07/24/24 17:05 07/24/24 17:05 Narrative: Physical exam: General: No acute distress Psych: Alert and oriented x3, full affect HEENT: Normocephalic, atraumatic Heart: Regular rate and rhythm, no murmur rub or gallop Lungs: Clear to auscultation bilaterally Abdomen: Soft, fundus 2 cm below U, NABS, incision clean and intact, surgical glue in place Lower extremities: 2+ edema to shins, no erythema Pelvic exam: deferred
[2024-07-24 19:34] LABS: Alanine Aminotransferase* 67 U/L (4-35); Aspartate Amino Transferase* 100 U/L (12-35); Blood Urea Nitrogen* 12 mg/dL (5-24); Creatinine* 0.8 mg/dL (0.5-1.5); Estimated Glomerular Filt Rate 102 ml/min
[2024-07-24 19:35] LABS: Uric Acid* 6.4 mg/dL (2.2-8.4)
[2024-07-24] MEDS: LABETALOL HCL 100 MG TABLET PO (20:44)
[2024-07-24] MEDS: IBUPROFEN 600 MG TABLET PO (20:44)
[2024-07-25] VITALS (13 sets, daily range): BP systolic 108–137; BP diastolic 70–86; PULSE 76–102; RESP 16–20; TEMP 36.3–36.6; O2SAT 97
[2024-07-25 00:11] LABS: Hematocrit 33.2 % (33.0-51.0); Hemoglobin* 11.2 gm/dL (12.0-16.0); Mean Corpuscular HGB Conc 34 gm/dL (32-36); Mean Corpuscular Hemoglobin 31 pg (26-34); Mean Corpuscular Volume 91 fL (80-100); Platelet Count* 247 K/uL (140-440); Red Blood Count 3.65 m/uL (4.00-5.20); White Blood Count* 11.31 K/uL (4.50-11.00)
[2024-07-25 00:18] LABS: Slide Review Reflex No
[2024-07-25 00:37] LABS: Alanine Aminotransferase* 72 U/L (4-35); Aspartate Amino Transferase* 86 U/L (12-35); Blood Urea Nitrogen* 11 mg/dL (5-24); Creatinine* 0.6 mg/dL (0.5-1.5); Estimated Glomerular Filt Rate 124 ml/min
[2024-07-25 00:43] LABS: Magnesium* 5.5 mg/dL (1.5-2.6)
[2024-07-25] MEDS: OXYCODONE 5 MG TABLET PO ×3 (01:35→21:14)
[2024-07-25] MEDS: IBUPROFEN 600 MG TABLET PO ×4 (02:50→21:15)
[2024-07-25] MEDS: ACETAMINOPHEN 500 MG TABLET 1000 MG PO (04:44)
[2024-07-25 06:39] LABS: Hemoglobin* 11.9 gm/dL (12.0-16.0); Mean Corpuscular HGB Conc 34 gm/dL (32-36); Mean Corpuscular Hemoglobin 31 pg (26-34); Mean Corpuscular Volume 91 fL (80-100); Platelet Count* 260 K/uL (140-440); Red Blood Count 3.85 m/uL (4.00-5.20); White Blood Count* 11.45 K/uL (4.50-11.00)
[2024-07-25 06:49] LABS: Slide Review Reflex No
[2024-07-25 07:16] LABS: Creatinine* 0.6 mg/dL (0.5-1.5); Estimated Glomerular Filt Rate 124 ml/min
[2024-07-25 07:17] LABS: Alanine Aminotransferase* 85 U/L (4-35); Aspartate Amino Transferase* 120 U/L (12-35); Blood Urea Nitrogen* 11 mg/dL (5-24)
[2024-07-25 07:40] LABS: Magnesium* 6.3 mg/dL (1.5-2.6)
--- NOTE | 2024-07-25 07:50 | PM.OBPNVD1 ---
OB - PN:Subj Subjective Time Seen by Provider: 07:50 Date Seen: 07/25/24 Narrative: Lesa is a 29yo seen on POD5 following C/S for intolerance of labor in the setting of IOL for gestational HTN. She was discharged off any antihypertensives. She presented to clinic on 07/24 for RN BP check which was noted to be elevated, subsequent preE labs notable for normal platelets, ALT more than twice the upper limit of normal, and creatinine 0.9. She was readmitted on 07/24 for preE with SF in the PP period, magnesium sulfate started just prior to 1800 and labetolol 100mg BID initiated. Lesa is feeling ok this morning. She notes brief dizziness with position changes, notes this seems to be primarily since starting magnesium. No chest pain, dyspnea, headaches, vision changes or RUQ pain. She has some lower abdominal cramping consistent with post-op state. No nausea/vomiting, bowel/bladder concerns or fevers/chills. No incision concerns. She is without difficulty. OB - PN: Obj Exam Physical Exam: Vital signs: Temp Pulse Resp BP Pulse Ox O2 Del Method 98 F 76 16 114/74 100 Room Air 07/25/24 04:45 07/25/24 06:45 07/25/24 06:45 07/25/24 06:45 07/24/24 17:05 07/24/24 17:05 Narrative: Physical exam: General: No acute distress Psych: Alert and oriented x3, full affect Heart: Regular rate and rhythm, no murmur rub or gallop Lungs: Clear to auscultation bilaterally - no wheezes, rales or crackles Abdomen: Soft, nondistended. No right upper quadrant tenderness. Mild tenderness to palpation of the lower quadrants, consistent with postoperative state. No rebound or guarding. Incision is well approximated with no drainage. Superior ecchymosis is noted particularly on the left margin of the incision. Extremities: 1+ pitting edema bilaterally. 3+ patellar reflexes bilaterally. OB - PN: Obj Data Labs Labs: Laboratory Results - last 24 hr 07/24/24 07/25/24 07/25/24 18:20 00:00 05:55 WBC 11.59 H 11.31 H 11.45 H RBC 3.82 L 3.65 L 3.85 L Hgb 11.8 L 11.2 L 11.9 L Hct 35.0 33.2 35.0 MCV 92 91 91 MCH 31 31 31 MCHC 34 34 34 RDW Coeff of [place] 12.8 Plt Count 263 247 260 Neut % (Auto) 72.3 H Lymph % (Auto) 19.1 L [place] % (Auto) 5.3 Eos % (Auto) 2.5 Baso % (Auto) 0.2 Neut # (Auto) 8.40 H Lymph # (Auto) 2.20 [place] # (Auto) 0.60 Eos # (Auto) 0.30 Baso # (Auto) 0.00 Abs Immat Gran (auto) 0.10 Imm/Tot Granulo (auto) 0.6 BUN 12 11 11 Creatinine 0.8 0.6 0.6 Estimated GFR 102 124 124 Uric Acid 6.4 Magnesium 5.5 H* 6.3 H* AST 100 H 86 H 120 H ALT 67 H 72 H 85 H OB - PN: A/P Delivery Assessment and Plan (1) Status post delivery: Status: Acute (2) Hypothyroid: Status: Acute (3) Pre-eclampsia affecting puerperium: Problem details: severe features based on AST elevation Status: Acute Plan day: 5 Plan: routine care Comments: Lesa is a 29-year-old seen on postoperative day 5 following readmission on pod for for preeclampsia with severe features in the period, confirmed by transaminitis. Since admission, she has been started on labetalol 100 mg b.i.d. and magnesium sulfate for seizure prophylaxis. Serial HELLP labs have been obtained. Patient is feeling okay this morning, denies headache, vision changes or right upper quadrant pain. She does have some vague dizziness on magnesium, improved when she gradually makes position changes. Blood pressures have been in the normal range on a regimen of labetalol 100 mg b.i.d., no adjustment is required. Last HELLP labs this morning due actually show interval increase in her transaminitis - AST of 120 (from 86), ALT of 85 (from 72), creatinine of 0.6 and platelets of 260. Magnesium level was in the therapeutic range at 6.3 mg per dL. I explained that magnesium will stay on for 24 hours, ending at about 1800 this evening. Plan to continue to trend her labs q.6h. No adjustments to her antihypertensive regimen is required at this time. We are hopeful for dismissal to home tomorrow, pending ongoing lab and blood pressure monitoring. Discussed that she does not need to be on a strict fluid restriction today, okay to drink to thirst. No signs/symptoms of pulmonary edema. Urine output has been robust a greater than 2 L since admission. Otherwise routine cares. All questions answered.
[2024-07-25] MEDS: DOCUSATE SODIUM 100 MG CAPSULE PO (09:06)
[2024-07-25] MEDS: LABETALOL HCL 100 MG TABLET PO ×2 (09:06→21:15)
[2024-07-25] MEDS: MAGNESIUM Infusion 40 GM/1,000 ML IV.SOLN IVPB (11:41)
[2024-07-25 11:57] LABS: Hematocrit 34.4 % (33.0-51.0); Hemoglobin* 11.7 gm/dL (12.0-16.0); Mean Corpuscular HGB Conc 34 gm/dL (32-36); Mean Corpuscular Hemoglobin 31 pg (26-34); Mean Corpuscular Volume 92 fL (80-100); Platelet Count* 253 K/uL (140-440); Red Blood Count 3.76 m/uL (4.00-5.20); White Blood Count* 10.14 K/uL (4.50-11.00)
[2024-07-25 11:58] LABS: Slide Review Reflex No
[2024-07-25 12:20] LABS: Blood Urea Nitrogen* 10 mg/dL (5-24); Creatinine* 0.8 mg/dL (0.5-1.5); Estimated Glomerular Filt Rate 102 ml/min
[2024-07-25 12:21] LABS: Alanine Aminotransferase* 86 U/L (4-35); Aspartate Amino Transferase* 107 U/L (12-35)
[2024-07-25 12:32] LABS: Magnesium* 6.6 mg/dL (1.5-2.6)
[2024-07-25 18:06] LABS: Hemoglobin* 11.6 gm/dL (12.0-16.0); Mean Corpuscular HGB Conc 33 gm/dL (32-36); Mean Corpuscular Hemoglobin 31 pg (26-34); Mean Corpuscular Volume 92 fL (80-100); Platelet Count* 260 K/uL (140-440); Red Blood Count 3.79 m/uL (4.00-5.20); White Blood Count* 10.69 K/uL (4.50-11.00)
[2024-07-25 18:13] LABS: Slide Review Reflex No
[2024-07-25 18:44] LABS: Alanine Aminotransferase* 83 U/L (4-35); Aspartate Amino Transferase* 95 U/L (12-35); Blood Urea Nitrogen* 12 mg/dL (5-24); Creatinine* 0.7 mg/dL (0.5-1.5); Estimated Glomerular Filt Rate 119 ml/min
[2024-07-25 18:49] LABS: Magnesium* 5.9 mg/dL (1.5-2.6)
[2024-07-26 01:00] VITALS: BP 117/76; PULSE 68; RESP 16; TEMP 36.8; O2SAT 97
[2024-07-26] MEDS: DOCUSATE SODIUM 100 MG CAPSULE PO (04:19)
[2024-07-26] MEDS: IBUPROFEN 600 MG TABLET PO (04:19)
[2024-07-26 04:33] VITALS: BP 107/71; PULSE 74; RESP 18; TEMP 36.9; O2SAT 98
[2024-07-26 07:54] LABS: Hemoglobin* 12.4 gm/dL (12.0-16.0); Mean Corpuscular HGB Conc 34 gm/dL (32-36); Mean Corpuscular Hemoglobin 31 pg (26-34); Mean Corpuscular Volume 93 fL (80-100); Platelet Count* 286 K/uL (140-440); White Blood Count* 10.33 K/uL (4.50-11.00)
[2024-07-26 07:57] LABS: Slide Review Reflex No
--- NOTE | 2024-07-26 08:00 | P.DS_ITS ---
DS: Providers Provider Time Seen by Provider: 08:00 Date Seen: 07/26/24 Date of admission: 07/24/24 16:34 Primary care physician: Not a Local Provider Admitting Clinician: Diasy Whiting MD Attending Physician on discharge: Ashwini Miller MD Date of Discharge: 07/26/24 DS: Diagnosis Discharge Diagnosis (1) Pre-eclampsia affecting puerperium: Status: Acute Problem details: severe features based on AST elevation Exam Narrative: Exam Narrative: General: Pleasant, , well groomed woman in no acute distress. Vital signs: Included in her electronic medical record. Heart: Regular rate and rhythm without gallop, rub or murmur. Chest: Clear to auscultation bilaterally. Abdomen: Soft, nontender, nondistended with normal bowel sounds throughout. Incision: Clean, dry and intact with sutures and skin adhesive gel. No erythema, image or skin separation. Extremities: +1 bilateral lower extremity edema to the ankle, no pain. Const: Vital Signs, click to edit/add: Vital Signs - 24 hr 07/25/24 09:02 07/25/24 11:00 07/25/24 12:55 Temperature Pulse Rate [Bilate ral Pulse Oximeter ] 93 80 89 Respiratory Rate 16 16 16 Blood Pressure [Ri ght Arm] 131/81 115/72 114/73 Pulse Oximetry 97 97 97 Oxygen Delivery Me thod Room Air Room Air Room Air 07/25/24 15:08 07/25/24 17:00 07/25/24 21:00 Temperature 97.9 F Pulse Rate [Bilate ral Pulse Oximeter ] 89 84 80 Respiratory Rate 16 16 Blood Pressure [Ri ght Arm] 137/81 108/72 131/79 Pulse Oximetry 97 97 Oxygen Delivery Me thod Room Air Room Air 07/26/24 01:00 07/26/24 04:33 Temperature 98.2 F 98.4 F Pulse Rate [Bilate ral Pulse Oximeter ] 68 74 Respiratory Rate 16 18 Blood Pressure [Ri ght Arm] 117/76 107/71 Pulse Oximetry 97 98 Oxygen Delivery Me thod Room Air Room Air OB - DS: Summary Hospital Course Hospital Course: The patient is a 29 year old G 1 P 1 day 6 from a primary low- transverse performed for nonreassuring status that was readmitted to the Center on 07/24/24 for severe preeclampsia by liver function test results. She received 24 hours of magnesium sulfate which was discontinued on 5:00 p.m. on 07/25/2024. Her last liver function tests had been trending down and I ordered additional set of preeclampsia labs today to verify that AST and ALT continue to decline. She denies headache, blurred vision and right upper quadrant pain. She has some swelling in her feet that has improved since delivery. Her blood pressure has been well controlled with labetalol 100 mg p.o. b.i.d. [place] Gender: Male Discharge Plan: Home Status at Discharge Functional status at discharge: independent ambulation Overall status at discharge: patient is progressing back to baseline Time Spent with Patient Time attestation: Total time spent providing and/or coordinating discharge services: Time spent: Less than 30 minutes Discharge Plan Discharge Disposition: Home, Self-Care Date of Admission: 07/24/24 16:34 Attending Provider on Discharge: Ashwini Miller Primary Care Provider: Provider,Not a Local Condition: Improved Anticipated Discharge Date/Time: 07/26/24 12:30 Discharge Medications: Continued levothyroxine 50 mcg capsule 50 mcg PO QDAY PNV 119-iron fum-folic acid 29 mg iron- 1 mg tablet 1 tab PO DAILY dvpfefz-bxxZ5-tiddyiw fumarate 600-125-18 mg-unit-mg tablet 1 tab PO BID Tums 300 mg (750 mg) tablet,chewable 300 mg PO BID PRN omeprazole 20 mg capsule,delayed release(DR/EC) 20 mg PO QDAY PRN acetaminophen 500 mg Tablet 1,000 mg PO Q6H PRN (Reason: Pain) Qty: 30 0RF docusate sodium 100 mg Capsule 100 mg PO DAILY Qty: 30 0RF ibuprofen 600 mg Tablet 600 mg PO Q6H PRN (Reason: Pain) Qty: 30 0RF oxycodone 5 mg Tablet 5 - 10 mg PO Q4H PRN (Reason: Pain) Qty: 15 0RF labetalol 100 mg tablet 100 mg PO BID Qty: 60 0RF Discharge Orders: Discharge Order (Routine); Ordered 07/26/24 Ordered By: Ashwini Miller Patient Education: Preeclampsia and Eclampsia After Delivery (GEN) Additional Instructions: Discharge instructions were reviewed with the patient including signs and symptoms of infection and home going medications Restrictions: Lifting Restrictions: 20 pounds for 6 weeks No not submerge incision under water X 2 weeks? Nothing vaginally for 6 weeks: no tampons or intercourse Do not drive while taking narcotic pain medication(s) Off Work or School for a minimum of 8 weeks Symptoms to report to doctor: * Bleeding that saturates more than one pad per hour * Passing clots larger than the size of a golf ball * Pain not relieved by prescribed medication * Fever above 100.4 degrees Fahrenheit * A foul vaginal odor * Difficulty in emotions, mood, and functions * Thoughts of hurting yourself and/or * Painful, reddened area in your breast * Any drainage, redness, or tenderness in your IV/epidural site * Severe headache that doesn't improve after taking medications * Changes in vision, including temporary loss of vision, blurred vision, and/or light sensitivity * Upper abdominal pain (usually under ribs on the right side) * Decrease in urination or painful, frequent urinating * Chest pain * Shortness of breath * Tenderness or pain with redness and/swelling in the calf(s) of your leg [facility] for a BP check?07/30/2024 Call with BP greater than or equal to 160/110 or less than 100/60 Optional 2-week visit: incision check, discuss feeding concerns, review control options and screen for anxiety/depression. 6-week visit for an annual exam. consultation services are available to all mothers and babies for the first year after delivery.? To make an appointment, please call [phone]. Activity Level: Other Follow Up Appointments: Provider,Not a Local [Primary Care Provider] - [facility] [Outside] Boaz Us MD [Referring] - Forms: [employer] Info Instructions
[2024-07-26 08:10] LABS: Alanine Aminotransferase* 86 U/L (4-35); Blood Urea Nitrogen* 11 mg/dL (5-24); Creatinine* 0.7 mg/dL (0.5-1.5); Estimated Glomerular Filt Rate 119 ml/min
[2024-07-26 08:22] LABS: Aspartate Amino Transferase* 72 U/L (12-35)
[2024-07-26 08:59] VITALS: BP 111/70; PULSE 92; RESP 16; TEMP 37.2; O2SAT 97
[2024-07-26] MEDS: LABETALOL HCL 100 MG TABLET PO (09:17)
[2024-07-26] MEDS: OXYCODONE 5 MG TABLET PO (09:18)
[2024-07-26] MEDS: ACETAMINOPHEN 500 MG TABLET 1000 MG PO (09:18)
== END 2024-07-26 10:15 | disposition home or self-care (01) | DRG 776 ==
PROVIDERS: Obstetrics & Gynecology; Admitting Provider Obstetrics & Gynecology; Visit Provider Obstetrics & Gynecology
DX: O14.15 Severe pre-eclampsia, complicating the puerperium (principal); O99.285 Endocrine, nutritional and metabolic diseases complicating the puerperium; E03.9 Hypothyroidism, unspecified
CPT/HCPCS: 36415; 82565; 83735; 84450; 84460; 84520; 84550; 85025; 85027; A9270; J3475

== ENCOUNTER 2024-09-04 13:31 | Outpatient (CLI) | payer OTHER, SELFPAY | END 2024-09-04 13:32 | disposition home or self-care (01) | PROVIDERS: Visit Provider Obstetrics & Gynecology | DX: E03.9 Hypothyroidism, unspecified (principal) | CPT/HCPCS: 84439; 84443 ==

== ENCOUNTER 2025-03-21 10:31 | Outpatient (CLI) | payer OTHER, SELFPAY | END 2025-03-21 10:32 | disposition home or self-care (01) | PROVIDERS: PCP Physician Assistant Medical; Visit Provider Physician Assistant Medical | DX: E03.9 Hypothyroidism, unspecified (principal); R74.01 Elevation of levels of liver transaminase levels | CPT/HCPCS: 80076; 84443 ==